=== PATIENT | male | born 1985 | race Hispanic/Latino ===

== ENCOUNTER 2017-05-29 21:58 | Emergency (ER) | payer SELFPAY ==
[~2017-05-29] VITALS: Ht 162.6 cm; Wt 67.9 kg
[2017-05-29 23:26] LABS: HEMATOCRIT 40.1 % (38.0-50.0); HEMOGLOBIN 13.4 G/DL (12.5-16.6); MCH 27.3 PG (29.0-34.0); MCHC 33.4 G/DL (30.0-36.0); MCV 81.8 FL (86-99); RBC DIS.WIDTH-CV 12.4 % (11.8-14.6); RBC DIS.WIDTH-SD 37.3 % (39-53); WHITE BLOOD COUNT 7.2 K/uL (4.1-10.2)
[2017-05-29 23:36] LABS: ALBUMIN 4.2 g/dL (3.2-4.8); CHLORIDE 110 mEq/L (99-109); SODIUM 144 mEq/L (136-147)
[2017-05-29 23:38] LABS: GLUCOSE 79 mg/dL (70-99); TOTAL PROTEIN 7.1 g/dL (6.4-8.3)
[2017-05-29 23:40] LABS: TOTAL BILIRUBIN 0.4 mg/dL (0.0-1.0)
[2017-05-29 23:42] LABS: ALKALINE PHOSPHATASE 136 IU/L (3-129); CREATININE 0.9 mg/dL (0.6-1.3)
[2017-05-29 23:43] LABS: GFR ESTIMATE (CALCULATED) > 59 mL/min/ (58.99-99999); UREA NITROGEN (BUN) 11 mg/dL (9-23)
[2017-05-29 23:44] LABS: AST (GOT) 19 IU/L (2-34)
[2017-05-29 23:45] LABS: ALT (GPT) 20 IU/L (3-49); LIPASE 30 U/L (1.0-51.0)
[2017-05-30 00:10] LABS: HEMATOLOGY COMMENT 1 SN; PLAT.SUFFICIENCY ADEQUATE; PLATELET COUNT UNABLE TO REPORT K/uL (156-360)
[2017-05-30] MEDS ORDERED: LOMOTIL TABLET1 EACH PO (01:11)
[2017-05-30 01:45] VITALS: BP 144/78
[2017-05-30 02:53] LABS: C DIFF TOXIN NEGATIVE (NEGATIVE)
== END 2017-05-30 01:45 | disposition home or self-care (01) ==
LOC: EME 21:58
PROVIDERS: Emergency Medicine; Physician Assistant
DX: R19.7 Diarrhea, unspecified (principal); F17.200 Nicotine dependence, unspecified, uncomplicated
CPT/HCPCS: 80053; 83690; 85027; 87493; 87506; 99281; 99284